=== PATIENT | male | born 1945 | race Caucasian/White ===

== ENCOUNTER → 2017-10-13 | Outpatient (CLI) | payer MEDICARE ==
--- NOTE | 2017-10-13 21:34 | CT ---
EXAM DESCRIPTION: Chest w/Contrast : Computed Tomography. CLINICAL HISTORY: DYSPNEA R06.02 COMPARISON: CT scan of the chest with contrast 07/27/2015. TECHNIQUE: Spiral-axial scans at 5.0 mm intervals through the lungs and thorax with IV contrast. 2.5 mm lung algorithm axial reconstructions. Coronal and sagittal 2.0 Mm reconstructions. No adverse reactions. Total Exam DLP: 771.4 mGy-cm. This exam was performed according to our departmental dose-optimization program which includes automated exposure control, adjustment of the mA and/or kV according to patient size and/or use of iterative reconstruction technique; to reduce radiation dose to as low as reasonably achievable (ALARA). FINDINGS: 8 mm subpleural nodule abutting the pleura in the inferior lateral lingula (series 4, image 78). 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 3 mm nodule associated with the lateral horizontal fissure (image 55) 2 mm subpleural nodule abutting the lateral right upper lobe (image 43) 3 mm subpleural nodule abutting the lateral segment of the right middle lobe (image 68). Bilateral basilar dependent minimal atelectasis. 5 mm soft tissue nodule associated with the left major fissure (image 59). Other smaller nodules associated with the fissure superior and inferior to this nodule. No consolidating infiltrate no pleural effusion or pneumothorax. Inhomogeneous enhancement of the thyroid gland. Small lymph nodes in the mediastinum and hilum. No axillary adenopathy. Increased fat widening the mediastinum. Right breast with retroareolar density and larger than the left breast. Normal size and enhancement of the adrenal glands, spleen. Fatty infiltration of the liver. Gallbladder is visualized. Fatty infiltration of the pancreas. Atherosclerotic calcification of the aorta. No fluid in the subdiaphragmatic retroperitoneal space. 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 IMPRESSION: 1. 8 mm subpleural nodule abutting the lateral pleura in the inferior lateral lingula. Stable since the prior study in 2014. Intrafissural nodules are most likely lymph nodes. Other smaller parenchymal nodules are subclinical, according to 2017 Fleischner Society guidelines for multiple pulmonary nodules. Please see below.* 2. Gynecomastia right breast. Stable since prior CT scan. Consider digital mammography/ultrasound if symptomatic. 3. Fatty infiltration of the liver and pancreas. 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 Electronically signed by: Edward Anderson MD 10/13/2017 9:33 PM [facility]
== END | disposition home or self-care (01) ==
LOC: CT 09:00
PROVIDERS: ATTEND General Practice
DX: R06.02 Shortness of breath (principal)

== ENCOUNTER 2018-02-05 05:34 | Day surgery (SDC) | payer MEDICARE ==
[2018-02-05] MEDS ORDERED: LIDOCAINE 1% PF 2 ML AMP INJ ONE (05:35)
[2018-02-05] MEDS ORDERED: TROP 1%/CYCLOPEN 1%/PHENYL 2% DROPS ONE (06:09)
[2018-02-05] MEDS: PROPARACAINE 0.5% OPHTH SOL 15 ML BTTL ONE ×2 (09:40→10:20)
[2018-02-05] MEDS: TOBRAMYCIN SULF 0.3 % OPHT SOL 1 DROP RIGHT_EYE ONE ×2 (09:40→10:45)
[2018-02-05] MEDS ORDERED: MIDAZOLAM INJ 2 MG/2 ML VIAL ONE (10:16)
[2018-02-05] MEDS ORDERED: DEXAMETHASONE 0.1% OPHTH SOL 1 DROP RIGHT_EYE ONE ×2 (10:35→10:45)
[2018-02-05] MEDS ORDERED: TOBRAMYCIN SULF 0.3 % OPHT SOL 1 DROP RIGHT_EYE ONE (10:35)
[2018-02-05] MEDS ORDERED: BRIMONIDINE 0.2% OPHTH DROPS RIGHT_EYE ONE ×2 (10:36→10:45)
[2018-02-05 13:59] VITALS: O2SAT 95
[2018-02-05 14:02] VITALS: BP 121/68; TEMP 97.2
== END 2018-02-05 11:15 | disposition home or self-care (01) ==
LOC: AMB 05:34
PROVIDERS: ATTEND Ophthalmology
DX: H25.11 Age-related nuclear cataract, right eye (principal); I10 Essential (primary) hypertension; M06.9 Rheumatoid arthritis, unspecified; I25.10 Atherosclerotic heart disease of native coronary artery without angina pectoris; K21.9 Gastro-esophageal reflux disease without esophagitis; E66.9 Obesity, unspecified; J45.909 Unspecified asthma, uncomplicated; G47.30 Sleep apnea, unspecified; I49.3 Ventricular premature depolarization; Z88.0 Allergy status to penicillin
CPT/HCPCS: 00142; 66984; J2250

== ENCOUNTER 2018-02-19 05:23 | Day surgery (SDC) | payer MEDICARE ==
[2018-02-19] MEDS ORDERED: TROP 1%/CYCLOPEN 1%/PHENYL 2% DROPS ONE (05:54)
[2018-02-19] MEDS ORDERED: PROPARACAINE 0.5% OPHTH SOL 15 ML BTTL ONE (05:54)
[2018-02-19] MEDS ORDERED: MIDAZOLAM INJ 2 MG/2 ML VIAL ONE (11:01)
[2018-02-19] MEDS ORDERED: LIDOCAINE 1% PF 2 ML AMP INJ ONE (11:13)
[2018-02-19] MEDS ORDERED: BRIMONIDINE 0.2% OPHTH DROPS LEFT_EYE ONE ×2 (11:18→11:28)
[2018-02-19] MEDS ORDERED: TOBRAMYCIN SULF 0.3 % OPHT SOL 1 DROP LEFT_EYE ONE ×2 (11:18→11:28)
[2018-02-19] MEDS ORDERED: DEXAMETHASONE 0.1% OPHTH SOL 1 DROP LEFT_EYE ONE ×2 (11:18→11:28)
== END 2018-02-19 12:10 | disposition home or self-care (01) ==
LOC: AMB 05:23
PROVIDERS: ATTEND Ophthalmology
DX: H25.12 Age-related nuclear cataract, left eye (principal); I10 Essential (primary) hypertension; M06.9 Rheumatoid arthritis, unspecified; K21.9 Gastro-esophageal reflux disease without esophagitis; E66.9 Obesity, unspecified; J45.909 Unspecified asthma, uncomplicated; G47.30 Sleep apnea, unspecified; Z88.0 Allergy status to penicillin; Z79.899 Other long term (current) drug therapy
CPT/HCPCS: 00142; 66984; J2250

== ENCOUNTER → 2019-12-13 | Outpatient (CLI) | payer MEDICARE | DX: I10 Essential (primary) hypertension (principal) ==